=== PATIENT | female | born 1985 | race Caucasian/White ===

== ENCOUNTER → 2016-06-13 | Outpatient (REF) | payer OTHER ==
[~2016-06-13] MED LIST: No Historical Meds
== END ==
LOC: M LAB REF 16:20
DX: N39.0 Urinary tract infection, site not specified (principal)

== ENCOUNTER → 2016-09-26 | Outpatient (REF) | payer OTHER ==
[2016-09-26 12:53] LABS: ALBUMIN 4.1 GM/DL (3.2-5.2); ALBUMIN/GLOBULIN RATIO 1.14 (1.00-1.93); ALKALINE PHOSPHATASE 79 U/L (45-117); ALT/SGPT 12 U/L (12-78); ANION GAP 6 MEQ/L (8-16); AST/SGOT 8 U/L (15-37); BILIRUBIN,TOTAL 0.4 MG/DL (0.2-1.0); BLOOD UREA NITROGEN 14 MG/DL (7-18); CALCIUM LEVEL 9.2 MG/DL (8.5-10.1); CARBON DIOXIDE LEVEL 31 MEQ/L (21-32); CHLORIDE LEVEL 103 MEQ/L (98-107); CREATININE FOR GFR 0.79 MG/DL (0.55-1.02); GLOMERULAR FILTRATION RATE > 60.0 (>60); GLUCOSE, FASTING 90 MG/DL (70-105); SODIUM LEVEL 140 MEQ/L (136-145); TOTAL PROTEIN 7.7 GM/DL (6.4-8.2)
[2016-09-26 13:05] LABS: BASO % 0.2 % (0.0-1.0); EOS # 0.2 K/mm3 (0.0-0.50); EOS % 1.9 % (0.0-3.0); LARGE UNSTAINED CELL # 0.1 K/mm3 (0.0-0.4); LARGE UNSTAINED CELL % 1.2 % (0.0-4.0); LYMPH # 1.9 K/mm3 (1.5-6.5); LYMPH % 20.8 % (24.0-44.0); MEAN CORPUSCULAR HEMOGLOBIN 28.9 pg (27.0-33.0); MEAN CORPUSCULAR HGB CONC 33.2 g/dl (32.0-36.5); MEAN CORPUSCULAR VOLUME 87.1 fl (80.0-96.0); MONO # 0.5 K/mm3 (0.0-0.8); MONO % 5.6 % (0.0-5.0); NEUTROPHILS # 6.1 K/mm3 (1.8-7.7); NEUTROPHILS % 70.3 % (36.0-66.0); PLATELET COUNT, AUTOMATED 222 k/mm3 (150-450); RED CELL DISTRIBUTION WIDTH 14.4 % (11.5-14.5); WHITE BLOOD COUNT 8.7 K/mm3 (4.0-10.0)
[2016-09-26 14:27] LABS: ERYTHROCYTE SEDIMENTATION RATE 27 mm/hr (0-20)
[2016-09-30 00:07] LABS: Lyme Disease IgG/IgM Antibodie <0.91 ISR (0.00-0.90); Lyme Disease IgM Ab Quantitati <0.80 index (0.00-0.79)
== END ==
LOC: M LABDRAW1 11:54
PROVIDERS: ATTEND Internal Medicine Rheumatology
DX: Z51.81 Encounter for therapeutic drug level monitoring (principal); Z79.899 Other long term (current) drug therapy; M35.9 Systemic involvement of connective tissue, unspecified

== ENCOUNTER → 2016-10-29 | Outpatient (CLI) | payer OTHER ==
--- NOTE | 2016-10-29 17:28 | REP ---
REASON: Neck pain. COMPARISON: None. 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 [address] can not assess the level of the cerebellar tonsils in relation to the foramen magnum. A repeat MRI would be necessary. Today's c-spine CT shows vertebral body height and alignment to be normal. The disc spaces are symmetric and well maintained. The facet joints are well aligned bilaterally. The occipital C1 relationship is within normal limits. There is no fracture. IMPRESSION: Findings and limitations as described above. Signed by Roosevelt Mccall DO 10/30/2016 10:11 A
--- NOTE | 2016-10-30 02:36 | REP ---
Clinical: Hypermobility syndrome . Technique: AP, lateral, flexion/extension, swimmers, bilateral oblique, and open-mouth views. Findings: Alignment and lordosis is maintained. There is no evidence for acute fracture / compression injury or subluxation. No significant degenerative changes are appreciated. Oblique views demonstrate patent neural foramen. Open mouth view demonstrates normal C1-C2 articulation and odontoid process. Impression: Normal cervical spine series. Signed by Dimitri Manning MD 10/30/2016 02:27 A
== END ==
LOC: M RAD 09:17
PROVIDERS: ATTEND Neurological Surgery
DX: M47.892 Other spondylosis, cervical region (principal); Q07.00 Arnold-Chiari syndrome without spina bifida or hydrocephalus

== ENCOUNTER 2017-03-20 11:22 | Emergency (ER) | payer OTHER ==
[~2017-03-20] VITALS: Ht 170.2 cm; Wt 85.5 kg
[2017-03-20] MEDS ORDERED: CELE20TA PO (11:38)
[2017-03-20] MEDS ORDERED: IBUP-1114 PO (11:38)
[2017-03-20] MEDS ORDERED: REGL10TA6 PO (11:38)
[2017-03-20 12:28] LABS: BASO % 0.2 % (0.0-1.0); EOS # 0.1 10^3/uL (0.0-0.50); EOS % 0.7 % (0.0-3.0); IMMATURE GRANULOCYTE % 0.5 % (0-0); LYMPH # 1.7 10^3/uL (1.5-6.5); LYMPH % 10.3 % (24.0-44.0); MEAN CORPUSCULAR HEMOGLOBIN 27.1 pg (27.0-33.0); MEAN CORPUSCULAR HGB CONC 31.6 g/dl (32.0-36.5); MEAN CORPUSCULAR VOLUME 85.7 fl (80.0-96.0); MONO # 1.3 10^3/uL (0.0-0.8); MONO % 7.6 % (0.0-5.0); NEUTROPHILS # 13.2 10^3/uL (1.8-7.7); NEUTROPHILS % 80.7 % (36.0-66.0); PLATELET COUNT, AUTOMATED 275 10^3/uL (150-450); RED CELL DISTRIBUTION WIDTH 14.6 % (11.5-14.5); WHITE BLOOD COUNT 16.3 10^3/uL (4.0-10.0)
[2017-03-20 12:42] LABS: ANION GAP 6 MEQ/L (8-16); BLOOD UREA NITROGEN 12 MG/DL (7-18); CALCIUM LEVEL 8.8 MG/DL (8.5-10.1); CARBON DIOXIDE LEVEL 27 MEQ/L (21-32); CHLORIDE LEVEL 104 MEQ/L (98-107); GLOMERULAR FILTRATION RATE > 60.0 (>60); GLUCOSE, FASTING 95 MG/DL (70-105); SODIUM LEVEL 137 MEQ/L (136-145)
[2017-03-20] MEDS ORDERED: ONDANSETRON 4MG/2ML VIAL (J2405) IV ONE (13:00)
[2017-03-20] MEDS ORDERED: ACETAMINOPHEN 325 MG TAB PO ONE (13:00)
[2017-03-20] MEDS ORDERED: PROHANCE 279.3MG/ML 15ML VIAL (A9576) As Ordered ONE (13:39)
[2017-03-20] MEDS ORDERED: PROHANCE 279.3MG/ML 5ML VIAL (A9576) As Ordered ONE (13:39)
[2017-03-20] MEDS ORDERED: NS 1,000 ML IV ONE (16:00)
--- NOTE | 2017-03-20 16:14 | REP ---
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 The patient reports increased fluid accumulation in the neck causing pain. Gadolinium enhancement dose: 17 ml of intravenous ProHance. MR technique: Axial, coronal and sagittal imaging planes are utilized. T1 and T2-weighted sequences include spin-echo, fast spin echo, FLAIR, and diffusion weighted sequences. 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 This appears to contain homogeneously T2 hyperintense and T1 hypointense fluid. There is no internal enhancement. The collection measures 7.7 cm cranial to caudal by 5.3 cm anterior to posterior by 5.3 cm medial to lateral. The cerebellar tonsils are ectopic as expected. There is no kinking or obvious compression of the medulla or upper cervical cord. On postcontrast imaging, there is minimal enhancement in the soft tissues posterior and inferior to the pseudomeningocele. No other abnormal gadolinium enhancement is appreciated. No intracranial fluid collection, abscess or mass is seen. There is no evidence of hydrocephalous. No abnormal white matter lesion is seen. There is no evidence of infarction. Paranasal sinuses are clear. 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 Otherwise negative. No visible kinking or compression of the cervical cord or medulla. 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 Signed by Braxton Rodriguez MD 03/20/2017 04:17 P
[2017-03-20] MEDS ORDERED: IBUPROFEN 600 MG TAB PO ONE (16:30)
[2017-03-20 17:46] VITALS: BP 130/68
--- NOTE | 2017-03-21 06:48 | ED PDOC ---
Post-Departure Follow-Up [facility] neurosurg dr gates/jerry and dr crowell faxed formal report of mri for fu,. per t sheet dr edwards covering, aware of mri findings and ok d/c Loki Haider MD Mar 21, 2017 06:48
== END 2017-03-20 18:07 | disposition home or self-care (01) ==
LOC: M ED 11:22
DX: G96.19 Other disorders of meninges, not elsewhere classified (principal); R51 Headache; Q07.00 Arnold-Chiari syndrome without spina bifida or hydrocephalus; F41.9 Anxiety disorder, unspecified; F32.9 Major depressive disorder, single episode, unspecified; Z79.899 Other long term (current) drug therapy
CPT/HCPCS: 70553; 80048; 81025; 85025; 85652; 86140; 86850; 86900; 86901; 96360; 96361; 96374; 99284; A9576; J2405

== ENCOUNTER → 2017-08-13 | Outpatient (CLI) | payer OTHER ==
[2017-08-13 14:05] LABS: BASO % 0.3 % (0.0-1.0); EOS # 0.2 10^3/uL (0.0-0.50); HEMATOCRIT 32.6 % (36.0-47.0); HEMOGLOBIN 10.2 g/dl (12.0-15.5); IMMATURE GRANULOCYTE % 0.3 % (0-3.0); LYMPH # 2.1 10^3/uL (1.5-6.5); LYMPH % 22.5 % (24.0-44.0); MEAN CORPUSCULAR HEMOGLOBIN 25.8 pg (27.0-33.0); MEAN CORPUSCULAR HGB CONC 31.3 g/dl (32.0-36.5); MEAN CORPUSCULAR VOLUME 82.5 fl (80.0-96.0); MONO # 0.7 10^3/uL (0.0-0.8); MONO % 7.2 % (0.0-5.0); NEUTROPHILS # 6.3 10^3/uL (1.8-7.7); NEUTROPHILS % 67.7 % (36.0-66.0); PLATELET COUNT, AUTOMATED 238 10^3/uL (150-450); RED BLOOD COUNT 3.95 10^6/uL (4.00-5.40); RED CELL DISTRIBUTION WIDTH 14.8 % (11.5-14.5); WHITE BLOOD COUNT 9.3 10^3/uL (4.0-10.0)
[2017-08-13 14:06] LABS: HEMATOCRIT 32.6 % (36.0-47.0)
[2017-08-13 14:39] LABS: VITAMIN B12 LEVEL 507 PG/ML (247-911)
[2017-08-13 14:43] LABS: ALBUMIN 3.7 GM/DL (3.2-5.2); ALBUMIN/GLOBULIN RATIO 0.97 (1.00-1.93); ALKALINE PHOSPHATASE 101 U/L (45-117); ALT/SGPT 9 U/L (12-78); ANION GAP 6 MEQ/L (8-16); AST/SGOT 13 U/L (7-37); BILIRUBIN,TOTAL 0.4 MG/DL (0.2-1.0); BLOOD UREA NITROGEN 14 MG/DL (7-18); CALCIUM LEVEL 8.6 MG/DL (8.5-10.1); CARBON DIOXIDE LEVEL 25 MEQ/L (21-32); CHLORIDE LEVEL 107 MEQ/L (98-107); FREE T3 2.8 PG/ML (2.2-4.0); FREE T4 1.09 NG/DL (0.76-1.46); GLOMERULAR FILTRATION RATE > 60.0 (>60); GLUCOSE, FASTING 92 MG/DL (70-100); IMMUNOGLOBULIN G 1290 MG/DL (681-1648); POTASSIUM SERUM 4.1 MEQ/L (3.5-5.1); SODIUM LEVEL 138 MEQ/L (136-145); THYROID STIMULATING HORMONE 0.792 uIU/ML (0.358-3.740); TOTAL PROTEIN 7.5 GM/DL (6.4-8.2)
[2017-08-14 09:28] LABS: THYROID PEROXIDASE ANTIBODY 30.3 U/ML (<60.0)
[2017-08-14 10:53] LABS: PRETREATED FOLATE FOR RBCFOL 10.8 NG/ML; RBC FOLATE 695.7 NG/ML (280-791)
== END ==
LOC: M LAB 13:20
DX: F41.1 Generalized anxiety disorder (principal); F32.1 Major depressive disorder, single episode, moderate; F90.0 Attention-deficit hyperactivity disorder, predominantly inattentive type; Q79.6 Ehlers-Danlos syndromes; G43.119 Migraine with aura, intractable, without status migrainosus; Q07.00 Arnold-Chiari syndrome without spina bifida or hydrocephalus
CPT/HCPCS: 83655

== ENCOUNTER → 2017-11-12 | Outpatient (CLI) | payer OTHER ==
[2017-11-12 15:41] LABS: IRON (FE) 132 UG/DL (50-170); PERCENT SATURATION 39.4 % (13.2-45.0); TOTAL IRON BINDING CAPACITY 335 UG/DL (250-450); VITAMIN B12 LEVEL 547 PG/ML (247-911)
[2017-11-17 00:07] LABS: Methylmalonic Acid 279 nmol/L (0-378)
== END ==
LOC: M LAB 14:44
DX: E61.1 Iron deficiency (principal); D51.3 Other dietary vitamin B12 deficiency anemia
CPT/HCPCS: 83550

== ENCOUNTER → 2018-04-09 | Outpatient (CLI) | payer OTHER ==
[~2018-04-09] MED LIST changes: +CELE20TA PO; +IBUP-1114 PO; +REGL10TA6 PO
[2018-04-09 11:09] LABS: BASO % 0.4 % (0.0-1.0); EOS # 0.2 10^3/uL (0.0-0.50); EOS % 1.9 % (0.0-3.0); HEMATOCRIT 40.9 % (36.0-47.0); HEMOGLOBIN 13.4 g/dl (12.0-15.5); LYMPH # 1.7 10^3/uL (1.5-4.5); LYMPH % 17.6 % (24.0-44.0); MEAN CORPUSCULAR HEMOGLOBIN 30.2 pg (27.0-33.0); MEAN CORPUSCULAR HGB CONC 32.8 g/dl (32.0-36.5); MEAN CORPUSCULAR VOLUME 92.3 fl (80.0-96.0); MONO # 0.8 10^3/uL (0.0-0.8); MONO % 8.1 % (0.0-5.0); NEUTROPHILS # 6.7 10^3/uL (1.8-7.7); NEUTROPHILS % 71.7 % (36.0-66.0); PLATELET COUNT, AUTOMATED 207 10^3/uL (150-450); RED BLOOD COUNT 4.43 10^6/uL (4.00-5.40); WHITE BLOOD COUNT 9.4 10^3/uL (4.0-10.0)
[2018-04-09 11:42] LABS: FREE T3 2.6 PG/ML (2.2-4.0); FREE T4 1.14 NG/DL (0.76-1.46); IRON (FE) 105 UG/DL (50-170); PERCENT SATURATION 33.2 % (13.2-45.0); THYROID STIMULATING HORMONE 0.623 uIU/ML (0.358-3.740); TOTAL IRON BINDING CAPACITY 316 UG/DL (250-450)
[2018-04-09 13:23] LABS: THYROGLOBULIN ANTIBODY < 15.0 U/ML (<60.0); TOTAL 25(OH) VITAMIN D 16.8 NG/ML (30.0-100.0)
[2018-04-09 13:24] LABS: VITAMIN B12 LEVEL 653 PG/ML (247-911)
[2018-04-09 13:46] LABS: THYROID PEROXIDASE ANTIBODY < 28.0 U/ML (<60.0)
[2018-04-14 00:07] LABS: ANTINUCLEAR ANTIBODIES DIRECT Negative (Negative); Methylmalonic Acid 387 nmol/L (0-378); T3 REVERSE 29.3 ng/dL (9.2-24.1)
== END ==
LOC: M LAB 10:14
PROVIDERS: ATTEND Nurse Practitioner Pediatrics
DX: F32.1 Major depressive disorder, single episode, moderate (principal); F90.0 Attention-deficit hyperactivity disorder, predominantly inattentive type; Q79.6 Ehlers-Danlos syndromes; Q07.00 Arnold-Chiari syndrome without spina bifida or hydrocephalus; G43.119 Migraine with aura, intractable, without status migrainosus; D51.3 Other dietary vitamin B12 deficiency anemia; E61.1 Iron deficiency

== ENCOUNTER 2018-06-25 17:06 | Emergency (ER) | payer OTHER ==
[~2018-06-25] VITALS: Ht 170.2 cm; Wt 88.6 kg
[2018-06-25 17:06] VITALS: BP 135/82
[2018-06-25] MEDS ORDERED: CLON-412 PO (17:10)
[2018-06-25] MEDS ORDERED: VITA50005 PO (17:10)
[2018-06-25] MEDS ORDERED: BRIN10TA4 PO (17:10)
[2018-06-25] MEDS ORDERED: SM I PO (17:10)
[2018-06-25] MEDS ORDERED: ADDE10TA PO (17:10)
--- NOTE | 2018-06-25 21:39 | REP ---
RIGHT HAND, FOUR VIEWS: There is no evidence of an acute fracture, dislocation or intrinsic bone disease. IMPRESSION: No fracture or dislocation. Electronically Signed by Tae Cerrato MD 06/26/2018 06:45 P
== END 2018-06-25 18:13 | disposition home or self-care (01) ==
LOC: M ED 17:06
DX: S60.221A Contusion of right hand, initial encounter (principal); W20.8XXA Other cause of strike by thrown, projected or falling object, initial encounter; Y92.009 Unspecified place in unspecified non-institutional (private) residence as the place of occurrence of the external cause; Z79.899 Other long term (current) drug therapy

== ENCOUNTER → 2018-08-09 | Outpatient (CLI) | payer MEDICAID ==
[~2018-08-09] MED LIST changes: +ADDE10TA PO; +BRIN10TA4 PO; +CLON-412 PO; +IRON325T2 PO; +VITA50005 PO
--- NOTE | 2018-08-09 11:48 | REP ---
Left knee series: Five views. History: Acute pain in the left knee. Findings: Five views of the left knee demonstrate normal bones, joints and soft tissues. No fracture, subluxation, or joint effusion is evident. Impression: Negative radiographs of the left knee. Electronically Signed by Braxton Rodriguez MD 08/09/2018 11:39 A
== END ==
LOC: M RAD 10:37
PROVIDERS: ATTEND Family Medicine
DX: M25.562 Pain in left knee (principal)

== ENCOUNTER → 2018-08-09 | Outpatient (CLI) | payer MEDICAID, OTHER ==
--- NOTE | 2018-08-09 20:17 | ECHO ---
DATE OF PROCEDURE: 08/09/2018 Date of : 1985 Age: 32 Gender: Female Height: 67 inches Weight: 195 pounds Body Surface Area: 2.0 meters squared Outpatient. REFERRING PHYSICIAN: Tae Irvin MD INDICATION: Jerri-Danlos syndrome. MEASUREMENTS: 2D Measurements: RV: 3.6 cm LV: 4.9 cm Septum: 0.8 cm Posterior wall: 0.8 cm Aortic root: 2.8 cm LA: 3.6 cm LVEF: 65% Doppler Measurements: AV: 1.5 meters per second LVOT: 1.1 meters per second LVOT diameter: 1.9 cm MV-E: 94, A: 55, EA ratio: 1.7 Early mitral deceleration time: 187 milliseconds E prime: 11.6, A prime: 10.3, E/E prime ratio: 8.1 PV: 0.8 meters per second Pulmonary artery acceleration time: 130 milliseconds PASP: 21 mmHg IVC: 1.5 cm COMMENTS: Normal sinus rhythm without intraventricular conduction disturbance. Somewhat technically challenging study in light of the patient's body habitus but diagnostically useful information was still obtained. M-mode and two-dimensional echocardiography was performed with pulsed, continuous wave, color flow, and tissue Doppler studies. Normal left ventricular size, wall thickness and wall motion. Normal left atrial size and Doppler assessment of left ventricular (LV) diastolic function and estimated mean left atrial pressure. Normal right heart chamber sizes and motion with normal pulmonary arterial pressure. Normal inferior vena cava (IVC) size and collapse against an elevated central venous pressure. Normal appearing and functioning valvular structures. Normal aortic root size. No apparent intracardiac mass or pericardial effusion. No apparent indication of cardiac involvement with her connective tissue disorder. MTDD
== END ==
LOC: M CARPUL 09:39
PROVIDERS: ATTEND Family Medicine
DX: M25.20 Flail joint, unspecified joint (principal)

== ENCOUNTER → 2019-06-08 | Outpatient (REF) | payer MEDICAID, OTHER ==
[2019-06-08 16:54] LABS: BASO % 0.5 % (0.0-1.0); EOS # 0.2 10^3/uL (0.0-0.5); EOS % 2.5 % (0.0-3.0); HEMATOCRIT 39.3 % (36.0-47.0); HEMOGLOBIN 12.6 g/dl (12.0-15.5); LYMPH # 1.8 10^3/uL (1.5-5.0); LYMPH % 22.5 % (24.0-44.0); MEAN CORPUSCULAR HEMOGLOBIN 29.6 pg (27.0-33.0); MEAN CORPUSCULAR HGB CONC 32.1 g/dl (32.0-36.5); MEAN CORPUSCULAR VOLUME 92.3 fl (80.0-96.0); MONO # 0.6 10^3/uL (0.0-0.8); NEUTROPHILS # 5.3 10^3/uL (1.5-8.5); NEUTROPHILS % 67.2 % (36.0-66.0); PLATELET COUNT, AUTOMATED 221 10^3/uL (150-450); RED BLOOD COUNT 4.26 10^6/uL (4.00-5.40); WHITE BLOOD COUNT 7.9 10^3/uL (4.0-10.0)
== END ==
LOC: M SFHCLERA 13:28
PROVIDERS: ATTEND Family Medicine
DX: R23.8 Other skin changes (principal); E55.9 Vitamin D deficiency, unspecified

== ENCOUNTER → 2021-05-20 | Outpatient (CLI) | payer OTHER, MEDICAID ==
[2021-05-20 13:42] LABS: BASO # 0.1 10^3/uL (0.0-0.2); BASO % 0.5 % (0.0-1.0); EOS # 0.3 10^3/uL (0.0-0.5); EOS % 2.5 % (0.0-3.0); HEMATOCRIT 34.2 % (36.0-47.0); HEMOGLOBIN 10.5 g/dl (12.0-15.5); LYMPH # 3.2 10^3/uL (1.5-5.0); LYMPH % 30.2 % (24.0-44.0); MEAN CORPUSCULAR HEMOGLOBIN 25.2 pg (27.0-33.0); MEAN CORPUSCULAR HGB CONC 30.7 g/dl (32.0-36.5); MEAN CORPUSCULAR VOLUME 82.2 fl (80.0-96.0); MONO % 9.1 % (2.0-8.0); NEUTROPHILS % 57.3 % (36.0-66.0); PLATELET COUNT, AUTOMATED 285 10^3/uL (150-450); RED BLOOD COUNT 4.16 10^6/uL (4.00-5.40); WHITE BLOOD COUNT 10.5 10^3/uL (4.0-10.0)
[2021-05-20 14:23] LABS: FOLATE 16.5 NG/ML
== END ==
LOC: M PLALAB 11:22
PROVIDERS: ATTEND Student in an Organized Health Care Education/Training Program
DX: E61.1 Iron deficiency (principal)

== ENCOUNTER 2022-04-21 12:50 | Emergency (ER) | payer OTHER ==
[~2022-04-21] VITALS: Ht 170.2 cm; Wt 96.9 kg
[2022-04-21 12:51] VITALS: BP 105/69
== END 2022-04-21 19:34 | disposition left against medical advice (07) ==
LOC: M ED 19:26
DX: Z53.21 Procedure and treatment not carried out due to patient leaving prior to being seen by health care provider (principal)

== ENCOUNTER → 2022-05-28 | Outpatient (CLI) | payer OTHER ==
[~2022-05-28] MED LIST changes: +PROHANCE 279.3MG/ML 15ML VIAL ONE; +PROHANCE 279.3MG/ML 5ML VIAL ONE
== END ==
LOC: M PLAIMG 14:23
PROVIDERS: ATTEND Student in an Organized Health Care Education/Training Program
DX: H93.A1 Pulsatile tinnitus, right ear (principal)
CPT/HCPCS: 70553; A9576

== ENCOUNTER 2022-08-25 15:13 | Emergency (ER) | payer OTHER ==
[~2022-08-25] VITALS: Ht 170.2 cm; Wt 124.1 kg
[~2022-08-25 15:13] MED LIST changes: -PROHANCE 279.3MG/ML 15ML VIAL ONE; -PROHANCE 279.3MG/ML 5ML VIAL ONE
[2022-08-25] MEDS ORDERED: MELA10TA2 PO (15:22)
[2022-08-25] MEDS ORDERED: LORA1TAB23 (15:22)
[2022-08-25] MEDS ORDERED: BENA25CA4 PO (15:22)
[2022-08-25] MEDS ORDERED: LEXA1TAB (15:22)
[2022-08-25] MEDS ORDERED: BUSP15TA47 (15:22)
[2022-08-25 17:51] VITALS: BP 138/70
== END 2022-08-25 17:52 | disposition home or self-care (01) ==
LOC: M ED 15:13
DX: H53.412 Scotoma involving central area, left eye (principal); F41.9 Anxiety disorder, unspecified; F32.A Depression, unspecified; Z79.899 Other long term (current) drug therapy; Z79.810 Long term (current) use of selective estrogen receptor modulators (SERMs)

== ENCOUNTER → 2022-10-08 | Outpatient (CLI) | payer OTHER ==
[~2022-10-08] MED LIST changes: +BENA25CA4 PO; +BUSP15TA47; +LEXA1TAB; +LORA1TAB23; +MELA10TA2 PO
[2022-10-08 12:23] LABS: BASO # 0.1 10^3/uL (0.0-0.2); BASO % 0.6 % (0.0-1.0); EOS # 0.2 10^3/uL (0.0-0.5); HEMATOCRIT 35.7 % (36.0-47.0); HEMOGLOBIN 10.9 g/dl (12.0-15.5); LYMPH # 2.5 10^3/uL (1.5-5.0); MEAN CORPUSCULAR HEMOGLOBIN 24.6 pg (27.0-33.0); MEAN CORPUSCULAR HGB CONC 30.5 g/dl (32.0-36.5); MEAN CORPUSCULAR VOLUME 80.6 fl (80.0-96.0); MONO # 0.9 10^3/uL (0.0-0.8); MONO % 8.6 % (2.0-8.0); NEUTROPHILS # 7.1 10^3/uL (1.5-8.5); NEUTROPHILS % 65.4 % (36.0-66.0); PLATELET COUNT, AUTOMATED 259 10^3/uL (150-450); RED BLOOD COUNT 4.43 10^6/uL (4.00-5.40); WHITE BLOOD COUNT 10.9 10^3/uL (4.0-10.0)
[2022-10-08 12:49] LABS: FOLLICLE STIMULATING HORMONE 11.5 mIU/ML; LUTEINIZING HORMONE 28.9 mIU/ML; THYROID STIMULATING HORMONE 1.992 uIU/ML (0.55-4.78); TOTAL 25(OH) VITAMIN D 26.8 NG/ML (20.0-100.0)
== END ==
LOC: M LAB 11:41
PROVIDERS: ATTEND Nurse Practitioner Family
DX: E55.9 Vitamin D deficiency, unspecified (principal); N92.1 Excessive and frequent menstruation with irregular cycle; F32.81 Premenstrual dysphoric disorder; Z84.2 Family history of other diseases of the genitourinary system

== ENCOUNTER → 2023-05-01 | Outpatient (CLI) | payer OTHER ==
[~2023-05-01] MED LIST changes: +LEXA1TAB2 PO; -LORA1TAB23; +LORA1TAB23 PO
== END ==
LOC: M RAD 15:59
PROVIDERS: ATTEND Family Medicine
DX: R59.1 Generalized enlarged lymph nodes (principal); E04.1 Nontoxic single thyroid nodule

== ENCOUNTER 2025-01-13 20:34 | Emergency (ER) | payer OTHER ==
[~2025-01-13] VITALS: Ht 172.7 cm; Wt 119.3 kg
[2025-01-13 22:19] LABS: KETONE, URINE AUTO RFX NEGATIVE (NEGATIVE); MUCUS, URINE RFX SMALL (NEGATIVE); NITRITE, URINE AUTO RFX NEGATIVE (NEGATIVE); RBC, URINE AUTO RFX 8 /HPF (0-3); SQUAM EPITHELIAL CELL UR AURFX 2 /HPF (0-6); WBC, URINE AUTO RFX 1 /HPF (0-3)
[2025-01-13 22:24] LABS: LEUKOCYTE ESTERASE UR AUTO RFX TRACE (NEGATIVE)
[2025-01-13 22:34] LABS: HCG, SERUM QUALITATIVE NEGATIVE (NEGATIVE)
[2025-01-13 22:47] LABS: ALT/SGPT 9 U/L (7.0-40); AST/SGOT 23 U/L (<34); CALCIUM LEVEL 9.5 MG/DL (8.5-10.1); CARBON DIOXIDE LEVEL 24 MMOL/L (20-31); CHLORIDE LEVEL 102 MMOL/L (98-107); CREATININE FOR GFR 0.82 MG/DL (0.55-1.30); GLOMERULAR FILTRATION RATE > 90.0 (>60); POTASSIUM SERUM 4.0 MMOL/L (3.5-5.1); SODIUM LEVEL 139 MMOL/L (136-145)
[2025-01-14 00:14] LABS: BASO # 0.1 10^3/uL (0.0-0.2); BASO % 0.4 % (0.0-1.0); EOS # 0.2 10^3/uL (0.0-0.5); EOS % 1.2 % (0.0-3.0); LYMPH # 2.9 10^3/uL (1.5-5.0); LYMPH % 19.8 % (24.0-44.0); MONO # 1.1 10^3/uL (0.0-0.8); MONO % 7.7 % (2.0-8.0); NEUTROPHILS # 10.4 10^3/uL (1.5-8.5); NEUTROPHILS % 70.4 % (36.0-66.0); PLATELET COUNT, AUTOMATED 253 10^3/uL (150-450)
[2025-01-14] MEDS ORDERED: ISOVUE-370 76% 100 ML VIAL As Ordered ONE (01:33)
[2025-01-14] MEDS: KETOROLAC 30 MG/ML 1 ML VIAL IV ONE (02:17)
[2025-01-14] MEDS: MORPHINE 4 MG/ML 1 ML VIAL IV PRN (04:01)
[2025-01-14] MEDS ORDERED: LEVS0.124 SL (05:52)
[2025-01-14] MEDS: HYOSCYAMINE SULFATE 0.125 MG SUBL TABLET PO ONE (06:44)
[2025-01-14 06:45] VITALS: BP 148/86; TEMP 96.8; O2SAT 97
[2025-01-14] MEDS: OXYCODONE/APAP 5MG/325MG(HOME DOSE PACK) PO ONE (06:46)
== END 2025-01-14 06:42 | disposition home or self-care (01) ==
LOC: M ED 20:34
DX: R10.11 Right upper quadrant pain (principal); N83.202 Unspecified ovarian cyst, left side; J45.909 Unspecified asthma, uncomplicated; K76.89 Other specified diseases of liver; K76.0 Fatty (change of) liver, not elsewhere classified; K42.9 Umbilical hernia without obstruction or gangrene; Z79.899 Other long term (current) drug therapy
CPT/HCPCS: 74177; 76705; 80048; 80076; 81001; 83690; 84703; 85025; 87086; 96374; 96375; 99285; J1885; Q9967

== ENCOUNTER 2025-01-24 17:31 | Emergency (ER) | payer OTHER ==
[~2025-01-24] VITALS: Ht 170.2 cm; Wt 120.7 kg
[~2025-01-24 17:31] MED LIST changes: +LEVS0.124 SL
[2025-01-24 18:15] LABS: BASO # 0.1 10^3/uL (0.0-0.2); BASO % 0.6 % (0.0-1.0); EOS # 0.4 10^3/uL (0.0-0.5); EOS % 2.8 % (0.0-3.0); LYMPH # 2.8 10^3/uL (1.5-5.0); LYMPH % 22.4 % (24.0-44.0); MONO # 0.9 10^3/uL (0.0-0.8); MONO % 7.4 % (2.0-8.0); NEUTROPHILS # 8.3 10^3/uL (1.5-8.5); NEUTROPHILS % 66.2 % (36.0-66.0); PLATELET COUNT, AUTOMATED 276 10^3/uL (150-450)
[2025-01-24 18:26] LABS: ALT/SGPT < 9 U/L (7.0-40); AST/SGOT 24 U/L (<34)
[2025-01-24 19:08] VITALS: BP 139/90
[2025-01-24] MEDS: KETOROLAC 30 MG/ML 1 ML VIAL IV ONE (19:08)
[2025-01-24] MEDS ORDERED: CLON0.3T PO (19:31)
[2025-01-24] MEDS ORDERED: MIRT-11 PO (19:31)
[2025-01-24] MEDS ORDERED: CLON0.5T2 PO (19:32)
[2025-01-24] MEDS ORDERED: HOME MED LIST COMPLETE! XX SCH (19:35)
[2025-01-24] MEDS: GI COCKTAIL 50 ML BTL(HYOSCYAMINE/MAALOX/LIDOCAINE VISCOUS)(1:3:1) PO ONE (19:56)
[2025-01-24 20:16] VITALS: O2SAT 96
[2025-01-24 20:20] VITALS: TEMP 100
[2025-01-24] MEDS ORDERED: HYDR-3713 PO (20:31)
[2025-01-24] MEDS: NORCO 5/325MG TABLET (HOME DOSE PACK) PO ONE (20:59)
== END 2025-01-24 21:02 | disposition home or self-care (01) ==
LOC: M ED 17:31 → EDBD 17:31 → M ED 21:02
DX: R10.31 Right lower quadrant pain (principal); K82.8 Other specified diseases of gallbladder; F41.9 Anxiety disorder, unspecified; F32.9 Major depressive disorder, single episode, unspecified; Z79.1 Long term (current) use of non-steroidal anti-inflammatories (NSAID); Z79.899 Other long term (current) drug therapy
CPT/HCPCS: 76705; 80047; 80076; 83690; 85025; 93041; 96374; 99284; J1885

== ENCOUNTER 2025-01-28 21:41 | Emergency (ER) | payer OTHER ==
[~2025-01-28] VITALS: Ht 172.7 cm; Wt 122.9 kg
[~2025-01-28 21:41] MED LIST changes: +CLON0.3T PO; +CLON0.5T2 PO; +HYDR-3713 PO; +MIRT-11 PO
[2025-01-28] MEDS ORDERED: DICY20TA20 (22:08)
[2025-01-28] MEDS ORDERED: ONDA-282 (22:08)
[2025-01-28 22:14] LABS: BASO # 0.1 10^3/uL (0.0-0.2); BASO % 0.4 % (0.0-1.0); EOS # 0.3 10^3/uL (0.0-0.5); EOS % 2.8 % (0.0-3.0); LYMPH # 3.0 10^3/uL (1.5-5.0); LYMPH % 26.5 % (24.0-44.0); MONO # 0.9 10^3/uL (0.0-0.8); MONO % 8.1 % (2.0-8.0); NEUTROPHILS # 6.9 10^3/uL (1.5-8.5); NEUTROPHILS % 61.3 % (36.0-66.0); PLATELET COUNT, AUTOMATED 224 10^3/uL (150-450)
[2025-01-28 22:36] LABS: ALT/SGPT < 9 U/L (7.0-40); AST/SGOT 29 U/L (<34)
[2025-01-28 22:37] LABS: HCG, SERUM QUALITATIVE NEGATIVE (NEGATIVE)
[2025-01-28] MEDS: ONDANSETRON 4MG/2ML VIAL IV ONE (22:49)
[2025-01-28] MEDS: KETOROLAC 30 MG/ML 1 ML VIAL IV ONE (22:50)
[2025-01-28] MEDS: NS (Normal Saline) 0.9% 1,000 ML IV ONE (22:50)
[2025-01-28] MEDS: MORPHINE 2 MG/ML 1 ML VIAL IV ONE (23:52)
[2025-01-29 02:00] VITALS: BP 134/74; TEMP 98.6; O2SAT 97
== END 2025-01-29 02:24 | disposition home or self-care (01) ==
LOC: M ED 21:41
DX: R10.11 Right upper quadrant pain (principal); K82.8 Other specified diseases of gallbladder; K76.0 Fatty (change of) liver, not elsewhere classified; F32.A Depression, unspecified; F41.9 Anxiety disorder, unspecified; Z79.1 Long term (current) use of non-steroidal anti-inflammatories (NSAID); Z79.899 Other long term (current) drug therapy
CPT/HCPCS: 76705; 80047; 80076; 83690; 84703; 85025; 96361; 96374; 96375; 99284; J1885; J2405

== ENCOUNTER 2025-01-31 19:35 | Emergency (ER) | payer OTHER ==
[~2025-01-31] VITALS: Ht 170.2 cm; Wt 120.3 kg
[~2025-01-31 19:35] MED LIST changes: +DICY20TA20; +ONDA-282
[2025-01-31 20:20] LABS: BASO # 0.1 10^3/uL (0.0-0.2); BASO % 0.5 % (0.0-1.0); EOS # 0.3 10^3/uL (0.0-0.5); EOS % 2.2 % (0.0-3.0); LYMPH # 3.0 10^3/uL (1.5-5.0); LYMPH % 25.9 % (24.0-44.0); MONO # 0.8 10^3/uL (0.0-0.8); MONO % 7.2 % (2.0-8.0); NEUTROPHILS # 7.4 10^3/uL (1.5-8.5); NEUTROPHILS % 63.4 % (36.0-66.0); PLATELET COUNT, AUTOMATED 254 10^3/uL (150-450)
[2025-01-31 20:39] LABS: ALT/SGPT < 9 U/L (7.0-40); AST/SGOT 32 U/L (<34); CALCIUM LEVEL 9.1 MG/DL (8.5-10.1); CARBON DIOXIDE LEVEL 27 MMOL/L (20-31); CHLORIDE LEVEL 104 MMOL/L (98-107); CREATININE FOR GFR 0.79 MG/DL (0.55-1.30); GLOMERULAR FILTRATION RATE > 90.0 (>60); POTASSIUM SERUM 4.9 MMOL/L (3.5-5.1); SODIUM LEVEL 140 MMOL/L (136-145)
[2025-01-31 21:01] LABS: HCG, SERUM QUALITATIVE NEGATIVE (NEGATIVE)
[2025-01-31] MEDS: PANTOPRAZOLE 40MG VIAL IV ONE (21:01)
[2025-01-31] MEDS: NS (Normal Saline) 0.9% 1,000 ML IV ONE (21:01)
[2025-01-31] MEDS: ONDANSETRON 4MG/2ML VIAL IV ONE (21:03)
[2025-01-31] MEDS: MORPHINE 4 MG/ML 1 ML VIAL IV ONE (21:04)
[2025-01-31] MEDS ORDERED: PERC5TAB12 PO (22:28)
[2025-01-31 22:46] VITALS: BP 125/61; TEMP 97; O2SAT 98
[2025-01-31] MEDS: PERCOCET 5MG/325MG TAB PO ONE (22:49)
== END 2025-01-31 22:50 | disposition home or self-care (01) ==
LOC: M ED 19:35
DX: K80.20 Calculus of gallbladder without cholecystitis without obstruction (principal); Z79.1 Long term (current) use of non-steroidal anti-inflammatories (NSAID); Z79.899 Other long term (current) drug therapy
CPT/HCPCS: 76705; 80048; 80076; 83690; 84703; 85025; 96361; 96374; 96375; 99284; J2405; J2470

== ENCOUNTER 2025-02-04 20:49 | Emergency (ER) | payer OTHER ==
[~2025-02-04] VITALS: Ht 170.2 cm; Wt 125.0 kg
[~2025-02-04 20:49] MED LIST changes: +PERC5TAB12 PO
[2025-02-04 21:47] LABS: BASO # 0.1 10^3/uL (0.0-0.2); BASO % 0.5 % (0.0-1.0); EOS # 0.3 10^3/uL (0.0-0.5); EOS % 2.0 % (0.0-3.0); LYMPH # 3.3 10^3/uL (1.5-5.0); LYMPH % 26.1 % (24.0-44.0); MONO # 0.9 10^3/uL (0.0-0.8); MONO % 6.8 % (2.0-8.0); NEUTROPHILS # 8.2 10^3/uL (1.5-8.5); NEUTROPHILS % 64.1 % (36.0-66.0); PLATELET COUNT, AUTOMATED 257 10^3/uL (150-450)
[2025-02-04 22:10] LABS: ALT/SGPT < 9 U/L (7.0-40); AST/SGOT 28 U/L (<34); CALCIUM LEVEL 9.1 MG/DL (8.5-10.1); CARBON DIOXIDE LEVEL 26 MMOL/L (20-31); CHLORIDE LEVEL 102 MMOL/L (98-107); CREATININE FOR GFR 0.79 MG/DL (0.55-1.30); GLOMERULAR FILTRATION RATE > 90.0 (>60); POTASSIUM SERUM 5.1 MMOL/L (3.5-5.1); SODIUM LEVEL 139 MMOL/L (136-145)
[2025-02-04] MEDS: ONDANSETRON 4MG/2ML VIAL IV ONE (23:06)
[2025-02-04] MEDS: MORPHINE 4 MG/ML 1 ML VIAL IV ONE (23:06)
[2025-02-05] MEDS: NORCO 5/325MG TABLET (HOME DOSE PACK) PO ONE (00:24)
[2025-02-05 00:28] VITALS: BP 128/68; TEMP 98.2; O2SAT 97
== END 2025-02-05 00:30 | disposition home or self-care (01) ==
LOC: EDBD 20:49 → M ED 20:49
DX: K80.20 Calculus of gallbladder without cholecystitis without obstruction (principal); K76.0 Fatty (change of) liver, not elsewhere classified; F41.9 Anxiety disorder, unspecified; F32.A Depression, unspecified; Z79.1 Long term (current) use of non-steroidal anti-inflammatories (NSAID); Z79.899 Other long term (current) drug therapy
CPT/HCPCS: 76705; 80048; 80076; 83690; 85025; 96374; 99284; J2405

== ENCOUNTER 2025-02-10 19:50 | Emergency (ER) | payer OTHER ==
[~2025-02-10] VITALS: Ht 172.7 cm; Wt 118.1 kg
[2025-02-10 19:55] VITALS: TEMP 99.1
[2025-02-10 21:05] LABS: BASO # 0.1 10^3/uL (0.0-0.2); BASO % 0.5 % (0.0-1.0); EOS # 0.3 10^3/uL (0.0-0.5); EOS % 1.9 % (0.0-3.0); LYMPH # 3.0 10^3/uL (1.5-5.0); LYMPH % 21.6 % (24.0-44.0); MONO # 0.9 10^3/uL (0.0-0.8); MONO % 6.7 % (2.0-8.0); NEUTROPHILS # 9.5 10^3/uL (1.5-8.5); NEUTROPHILS % 68.8 % (36.0-66.0); PLATELET COUNT, AUTOMATED 294 10^3/uL (150-450)
[2025-02-10 21:23] LABS: ALT/SGPT 13 U/L (7.0-40); AST/SGOT 32 U/L (<34); CALCIUM LEVEL 9.7 MG/DL (8.5-10.1); CARBON DIOXIDE LEVEL 22 MMOL/L (20-31); CHLORIDE LEVEL 104 MMOL/L (98-107); CREATININE FOR GFR 0.78 MG/DL (0.55-1.30); GLOMERULAR FILTRATION RATE > 90.0 (>60); POTASSIUM SERUM 4.6 MMOL/L (3.5-5.1); SODIUM LEVEL 138 MMOL/L (136-145)
[2025-02-10] MEDS: NS (Normal Saline) 0.9% 1,000 ML IV ONE (21:55)
[2025-02-10] MEDS: ONDANSETRON 4MG/2ML VIAL IV ONE (21:56)
[2025-02-10] MEDS: KETOROLAC 30 MG/ML 1 ML VIAL IV ONE (21:56)
[2025-02-10] MEDS: MORPHINE 4 MG/ML 1 ML VIAL IV ONE (22:38)
[2025-02-11 01:46] VITALS: BP 147/90
[2025-02-11 01:50] VITALS: O2SAT 97
[2025-02-11] MEDS ORDERED: PERC5TAB12 PO (01:54)
[2025-02-11] MEDS: OXYCODONE/APAP 5MG/325MG(HOME DOSE PACK) PO ONE (02:13)
== END 2025-02-11 02:37 | disposition home or self-care (01) ==
LOC: M ED 19:50
DX: K80.20 Calculus of gallbladder without cholecystitis without obstruction (principal); Z79.1 Long term (current) use of non-steroidal anti-inflammatories (NSAID); Z79.899 Other long term (current) drug therapy
CPT/HCPCS: 76705; 76775; 80053; 83605; 83690; 85025; 96374; 96375; 99285; J1885; J2405

== ENCOUNTER 2025-02-11 23:11 | Emergency (ER) | payer OTHER ==
[~2025-02-11] VITALS: Ht 172.7 cm; Wt 119.3 kg
[2025-02-11 23:17] VITALS: BP 137/90; TEMP 98.9; O2SAT 99
[2025-02-12 01:20] LABS: BASO # 0.1 10^3/uL (0.0-0.2); BASO % 0.5 % (0.0-1.0); EOS # 0.3 10^3/uL (0.0-0.5); EOS % 2.5 % (0.0-3.0); LYMPH # 3.0 10^3/uL (1.5-5.0); LYMPH % 26.8 % (24.0-44.0); MONO # 1.1 10^3/uL (0.0-0.8); MONO % 10.3 % (2.0-8.0); NEUTROPHILS # 6.6 10^3/uL (1.5-8.5); NEUTROPHILS % 59.4 % (36.0-66.0); PLATELET COUNT, AUTOMATED 242 10^3/uL (150-450)
[2025-02-12] MEDS: PANTOPRAZOLE 40MG TAB PO ONE (01:47)
[2025-02-12] MEDS: ONDANSETRON 4MG ORAL DISINTEGRATING TAB PO ONE (01:47)
[2025-02-12 01:59] LABS: ALT/SGPT 23 U/L (7.0-40); AST/SGOT 59 U/L (<34); CALCIUM LEVEL 8.6 MG/DL (8.5-10.1); CARBON DIOXIDE LEVEL 25 MMOL/L (20-31); CHLORIDE LEVEL 103 MMOL/L (98-107); CREATININE FOR GFR 0.80 MG/DL (0.55-1.30); GLOMERULAR FILTRATION RATE > 90.0 (>60); POTASSIUM SERUM 4.9 MMOL/L (3.5-5.1); SODIUM LEVEL 138 MMOL/L (136-145)
== END 2025-02-12 02:16 | disposition home or self-care (01) ==
LOC: EDBD 23:11 → M ED 23:11
DX: K80.40 Calculus of bile duct with cholecystitis, unspecified, without obstruction (principal); Z79.1 Long term (current) use of non-steroidal anti-inflammatories (NSAID); Z79.899 Other long term (current) drug therapy

== ENCOUNTER 2025-03-04 20:25 | Emergency (ER) | payer OTHER ==
[~2025-03-04] VITALS: Ht 172.7 cm; Wt 160.5 kg
[2025-03-04 20:35] VITALS: TEMP 99.2
[2025-03-04 21:09] LABS: BASO # 0.1 10^3/uL (0.0-0.2); BASO % 0.5 % (0.0-1.0); EOS # 0.2 10^3/uL (0.0-0.5); EOS % 1.8 % (0.0-3.0); LYMPH # 3.0 10^3/uL (1.5-5.0); LYMPH % 24.6 % (24.0-44.0); MONO # 0.9 10^3/uL (0.0-0.8); MONO % 7.0 % (2.0-8.0); NEUTROPHILS # 8.1 10^3/uL (1.5-8.5); NEUTROPHILS % 65.5 % (36.0-66.0); PLATELET COUNT, AUTOMATED 330 10^3/uL (150-450)
[2025-03-04 21:33] LABS: CK-MB VALUE MASS < 1.0 NG/ML (<3.6)
[2025-03-04 21:35] LABS: CPK CREATINE PHOSPHOKINASE 23 U/L (34-145)
[2025-03-04 21:36] LABS: CALCIUM LEVEL 9.0 MG/DL (8.5-10.1); CARBON DIOXIDE LEVEL 23 MMOL/L (20-31); CHLORIDE LEVEL 105 MMOL/L (98-107); CREATININE FOR GFR 0.81 MG/DL (0.55-1.30); GLOMERULAR FILTRATION RATE > 90.0 (>60); POTASSIUM SERUM 4.3 MMOL/L (3.5-5.1); SODIUM LEVEL 140 MMOL/L (136-145)
[2025-03-04] MEDS ORDERED: ISOVUE-370 76% 100 ML VIAL As Ordered ONE (22:32)
[2025-03-04] MEDS: ONDANSETRON 4MG/2ML VIAL IV ONE (22:52)
[2025-03-04] MEDS: NS (Normal Saline) 0.9% 1,000 ML IV ONE (22:52)
[2025-03-04] MEDS: KETOROLAC 30 MG/ML 1 ML VIAL IV ONE (22:53)
[2025-03-04 23:19] LABS: CK-MB VALUE MASS < 1.0 NG/ML (<3.6)
[2025-03-04 23:21] LABS: ALT/SGPT 28 U/L (7.0-40); AST/SGOT 69 U/L (<34); CPK CREATINE PHOSPHOKINASE 19 U/L (34-145)
[2025-03-04] MEDS ORDERED: MORPHINE 2 MG/ML 1 ML VIAL IV PRN (23:35)
[2025-03-05 00:15] VITALS: O2SAT 98
[2025-03-05 00:30] VITALS: BP 147/76
[2025-03-05] MEDS: PERCOCET 5MG/325MG TAB PO ONE (00:57)
[2025-03-05] MEDS ORDERED: PERC5TAB12 PO (01:31)
[2025-03-05] MEDS: OXYCODONE/APAP 5MG/325MG(HOME DOSE PACK) PO ONE (01:53)
== END 2025-03-05 02:00 | disposition home or self-care (01) ==
LOC: M ED 20:25
DX: G89.18 Other acute postprocedural pain (principal); Z90.49 Acquired absence of other specified parts of digestive tract; N83.292 Other ovarian cyst, left side; K76.0 Fatty (change of) liver, not elsewhere classified; J98.11 Atelectasis; E66.9 Obesity, unspecified; F32.81 Premenstrual dysphoric disorder; Z79.1 Long term (current) use of non-steroidal anti-inflammatories (NSAID); Z79.899 Other long term (current) drug therapy
CPT/HCPCS: 71045; 71275; 74177; 80048; 80076; 82550; 82553; 84484; 85025; 93005; 96361; 96374; 96375; 99284; J1885; J2405; Q9967